=== PATIENT | male | born 1990 | race American Indian/Alaskan Native ===

== ENCOUNTER 2019-03-19 10:40 | Emergency (ER) | payer OTHER ==
[~2019-03-19] VITALS: Ht 175.3 cm; Wt 86.2 kg
== END 2019-03-19 13:45 | disposition home or self-care (01) ==
LOC: ED 10:40
DX: T40.4X1A Poisoning by other synthetic narcotics, accidental (unintentional), initial encounter (principal)
CPT/HCPCS: 99284